=== PATIENT | female | born 1975 | race Caucasian/White ===

== ENCOUNTER 2023-06-18 12:41 | Outpatient (OUT) | payer OTHER, SELFPAY ==
--- NOTE | 2023-06-18 12:51 | MM_ITS ---
Patient Name: ALMA GARNER MR#: [id number] : 1975 Exam Date: 06/18/2023 Ordering Doctor: DR MARCIANO SÁNCHEZ RADIOLOGY REPORT PROCEDURE: MM TOMOSYNTHESIS SCREENING BI COMPARISON: MG MAMM SCREEN FAITH W CAD, 04/08/2020. MG MAMM RT DIAG W CAD, 04/26/2020. INDICATIONS: screening Calculator Name NCI Breast Cancer Risk Assessment Tool 5 Year Breast Cancer Risk Not Reported. Lifetime Breast Cancer Risk Not Reported. Personal Breast Cancer No Personal Ovarian Cancer No Treatments None Family Cancers None LOCATION: [facility] BREAST COMPOSITION: Scattered areas fibroglandular density. FINDINGS: DIAGNOSTIC CATEGORY 1--NEGATIVE. NO CHANGE FROM COMPARISON ASSESSMENT. Scattered benign-appearing calcifications are present. RIGHT BREAST: No significant suspicious finding. LEFT BREAST: No significant suspicious finding. RECOMMENDATIONS: ROUTINE MAMMOGRAM AND CLINICAL EVALUATION IN 12 MONTHS. PLEASE NOTE: A NORMAL MAMMOGRAM DOES NOT EXCLUDE THE POSSIBILITY OF BREAST CANCER. A CLINICALLY SUSPICIOUS PALPABLE LUMP SHOULD BE BIOPSIED. Dictated by: Matthew Gruber MD on 06/19/2023 at 07:02 Approved by: Matthew Gruber MD on 06/19/2023 at 07:25
== END 2023-06-18 12:42 | disposition home or self-care (01) ==
LOC: MAMMO 12:44
PROVIDERS: PCP Family Medicine; Visit Provider Family Medicine
DX: Z12.31 Encounter for screening mammogram for malignant neoplasm of breast (principal)
CPT/HCPCS: 77063; 77067